=== PATIENT | female | born 1985 ===

== ENCOUNTER 2020-03-26 13:06 | Emergency (ER) | payer OTHER ==
[2020-03-26] MEDS ORDERED: cloNIDine 0.2 MG TAB PO ONE (14:06)
--- NOTE | 2020-03-26 14:06 | Event Note ---
ED Screening Note Date of service: 03/26/20 Time: 14:05 ED Screening Note: 35-year-old female with a history of back pain pressure noncompliant with medication states she has not taken medication over a year due to primary care change presents here today from [facility] due to elevated blood pressure. This initial assessment/diagnostic orders/clinical plan/treatment(s) is/are subject to change based on patients health status, clinical progression and re- assessment by fellow clinical providers in the ED. Further treatment and workup at subsequent clinical providers discretion. Patient/guardian urged not to elope from the ED as their condition may be serious if not clinically assessed and managed. Initial orders include: CBC, CMP, troponin EKG, ordered. Clonidine ordered as well
[2020-03-26 14:43] LABS: Basophils # (Auto) 0.1 K/mm3 (0.0-0.1); Basophils % (Auto) 0.5 % (0.0-1.8); Eosinophils # (Auto) 0.2 K/mm3 (0.0-0.4); Eosinophils % (Auto) 1.7 % (0.0-4.3); Hematocrit 45.4 % (30.3-42.9); Hemoglobin 15.1 gm/dl (10.1-14.3); Lymphocytes # (Auto) 3.4 K/mm3 (1.2-5.4); Lymphocytes % (Auto) 25.4 % (13.4-35.0); Mean Corpuscular HGB Conc 33 % (30-34); Mean Corpuscular Volume 86 fl (79-97); Monocytes % (Auto) 7.6 % (0.0-7.3); Platelet Count 216 K/mm3 (140-440); Red Blood Count 5.26 M/mm3 (3.65-5.03); Red Cell Distribution Width 12.6 % (13.2-15.2)
[2020-03-26 15:06] LABS: Alanine Aminotransferase 25 units/L (7-56); Albumin 4.5 g/dL (3.9-5); Blood Urea Nitrogen 14 mg/dL (7-17); Calcium 9.5 mg/dL (8.4-10.2); Hemolysis Index 10
[2020-03-26 15:13] LABS: BUN/Creatinine Ratio 28
[2020-03-26 16:06] VITALS: BP 173/102
--- NOTE | 2020-03-26 16:19 | Emergency Department Report ---
ED General Adult HPI - General Chief complaint: High BP Stated complaint: HYPERTENSION PUI?: No Time Seen by Provider: 03/26/20 16:14 Source: patient Mode of arrival: Ambulatory Limitations: No Limitations - History of Present Illness Initial comments: This is a 35-year-old female who presents the ED with a prior medical history of hypertension currently not taking medication. Patient was being evaluated at [facility] office when she was sent to the emergency room due to elevated blood pressure. Patient presented to the ED with no complaints stating that she had not taken her blood pressure medication in over a year due to the fact that it was discontinued and she has not been to her primary care physician since then. Patient denies fever/chills/nausea vomiting/headache/blurry vision/chest pain/shortness of breath or any other symptoms. She is requesting blood pressure medication and follow-up referrals - Related Data Previous Rx's Medication Instructions Recorded Last Taken Type amLODIPine 10 mg PO DAILY #40 tab 03/26/20 Unknown Rx hydroCHLOROthiazide [HCTZ] 25 mg PO QDAY #20 tablet 03/26/20 Unknown Rx Allergies Allergy/AdvReac Type Severity Reaction Status Date / Time No Known Allergies Allergy Unverified 03/26/20 13:11 ED Review of Systems ROS: Stated complaint: HYPERTENSION Other details as noted in HPI Comment: All other systems reviewed and negative ED Past Medical Hx - Past Medical History Previous Medical History?: Yes Hx Hypertension: Yes Hx Diabetes: Yes Additional medical history: PCOS - Surgical History Past Surgical History?: No - Social History Smoking Status: Never Smoker Substance Use Type: None - Medications Home Medications: Home Medications Medication Instructions Recorded Confirmed Last Taken Type amLODIPine 10 mg PO DAILY #40 tab 03/26/20 Unknown Rx hydroCHLOROthiazide [HCTZ] 25 mg PO QDAY #20 tablet 03/26/20 Unknown Rx ED Physical Exam - General Limitations: No Limitations General appearance: alert, in no apparent distress - Head Head exam: Present: atraumatic, normocephalic - Eye Eye exam: Present: normal appearance, PERRL - ENT ENT exam: Present: mucous membranes moist - Neck Neck exam: Present: normal inspection - Respiratory Respiratory exam: Present: normal lung sounds bilaterally. Absent: respiratory distress, chest wall tenderness, accessory muscle use - Cardiovascular Cardiovascular Exam: Present: regular rate, normal rhythm. Absent: systolic murmur, diastolic murmur, rubs, gallop - GI/Abdominal GI/Abdominal exam: Present: soft, normal bowel sounds - Extremities Exam Extremities exam: Present: normal inspection - Back Exam Back exam: Present: normal inspection, full ROM - Neurological Exam Neurological exam: Present: alert, oriented X3, normal gait - Psychiatric Psychiatric exam: Present: normal affect, normal mood - Skin Skin exam: Present: warm, dry, intact, normal color. Absent: rash ED Course Vital Signs 03/26/20 03/26/20 03/26/20 13:11 14:02 14:20 Temperature 98.7 F Pulse Rate 92 H 70 Respiratory 18 Rate Blood Pressure 195/114 Blood Pressure 195/120 [Left] O2 Sat by Pulse 95 Oximetry 03/26/20 15:49 Temperature 99.0 F Pulse Rate 70 Respiratory 18 Rate Blood Pressure 173/102 Blood Pressure [Left] O2 Sat by Pulse 100 Oximetry ED Medical Decision Making - Lab Data Result diagrams: 03/26/20 14:23 03/26/20 14:23 Laboratory Last Values WBC 13.4 K/mm3 (4.5-11.0) H 03/26/20 14:23 RBC 5.26 M/mm3 (3.65-5.03) H 03/26/20 14:23 Hgb 15.1 gm/dl (10.1-14.3) H 03/26/20 14:23 Hct 45.4 % (30.3-42.9) H 03/26/20 14:23 MCV 86 fl (79-97) 03/26/20 14:23 MCH 29 pg (28-32) 03/26/20 14:23 MCHC 33 % (30-34) 03/26/20 14:23 RDW 12.6 % (13.2-15.2) L 03/26/20 14:23 Plt Count 216 K/mm3 (140-440) 03/26/20 14:23 Lymph % (Auto) 25.4 % (13.4-35.0) 03/26/20 14:23 [place] % (Auto) 7.6 % (0.0-7.3) H 03/26/20 14:23 Eos % (Auto) 1.7 % (0.0-4.3) 03/26/20 14:23 Baso % (Auto) 0.5 % (0.0-1.8) 03/26/20 14:23 Lymph # 3.4 K/mm3 (1.2-5.4) 03/26/20 14:23 [place] # 1.0 K/mm3 (0.0-0.8) H 03/26/20 14:23 Eos # 0.2 K/mm3 (0.0-0.4) 03/26/20 14:23 Baso # 0.1 K/mm3 (0.0-0.1) 03/26/20 14:23 Seg Neutrophils % 64.8 % (40.0-70.0) 03/26/20 14:23 Seg Neutrophils # 8.7 K/mm3 (1.8-7.7) H 03/26/20 14:23 Sodium 137 mmol/L (137-145) 03/26/20 14:23 Potassium 3.9 mmol/L (3.6-5.0) 03/26/20 14:23 Chloride 103.0 mmol/L (98-107) 03/26/20 14:23 Carbon Dioxide 18 mmol/L (22-30) L 03/26/20 14:23 Anion Gap 20 mmol/L 03/26/20 14:23 BUN 14 mg/dL (7-17) 03/26/20 14:23 Creatinine 0.5 mg/dL (0.6-1.2) L 03/26/20 14:23 Estimated GFR > 60 ml/min 03/26/20 14:23 BUN/Creatinine Ratio 28 % 03/26/20 14:23 Glucose 187 mg/dL (65-100) H 03/26/20 14:23 Calcium 9.5 mg/dL (8.4-10.2) 03/26/20 14:23 Total Bilirubin 0.30 mg/dL (0.1-1.2) 03/26/20 14:23 AST 16 units/L (5-40) 03/26/20 14:23 ALT 25 units/L (7-56) 03/26/20 14:23 Alkaline Phosphatase 61 units/L (35-129) 03/26/20 14:23 Troponin T < 0.010 ng/mL (0.00-0.029) 03/26/20 14:23 Total Protein 7.6 g/dL (6.3-8.2) 03/26/20 14:23 Albumin 4.5 g/dL (3.9-5) 03/26/20 14:23 Albumin/Globulin Ratio 1.5 % 03/26/20 14:23 - Medical Decision Making This 25-year-old female who presents with uncontrolled hypertension with elevated blood pressure in the ED. Patient received clonidine 0.2 in the emergency room. Labs were ordered. Labs reviewed and discussed with the patient. Troponin negative, EKG shows no acute findings Discussed all findings with the patient. Discussed with patient is important for her to take blood pressure medication daily. Critical care attestation.: If time is entered above; I have spent that time in minutes in the direct care of this critically ill patient, excluding procedure time. ED Disposition Clinical Impression: Uncontrolled hypertension Disposition: TO HOME OR SELFCARE Is pt being admited?: No Does the pt Need Aspirin: No Condition: Stable Instructions: Hypertension (ED) Additional Instructions: Make sure to follow up with the primary care physician as discussed. Take all your medications as you've been prescribed. If you have any worsening symptoms or develop new symptoms please return to ED immediately. Prescriptions: amLODIPine 10 mg PO DAILY #40 tab hydroCHLOROthiazide [HCTZ] 25 mg PO QDAY #20 tablet Referrals: PRIMARY CARE, [Primary Care Provider] - 3-[address] [facility] [Outside] - 3-5 Days [facility] [Outside] - 3-5 Days [facility] [Provider Group] - 3-5 Days Forms: Work/School Release Form(ED)
== END 2020-03-26 16:43 | disposition home or self-care (01) ==
LOC: ED 13:06
DX: I10 Essential (primary) hypertension (principal); E11.9 Type 2 diabetes mellitus without complications; Z79.899 Other long term (current) drug therapy
CPT/HCPCS: 36415; 80053; 84484; 85025; 93005; 99283